=== PATIENT | female | born 1965 | race Two or more races ===

== ENCOUNTER 2022-05-31 02:44 | Emergency (ER) | payer OTHER ==
[~2022-05-31] VITALS: Ht 154.9 cm; Wt 60.3 kg
--- NOTE | 2022-05-31 03:00 | NUR ---
[id number]. FELL IN TOILET AFTER HER LEG CRAMPED AND GAVE IN. DENIED HT. PT IS AAOX4. ABLE TO MAKE NEEDS KNOWN. ATTACHED TO MONITOR. VITALS CHECKED.
--- NOTE | 2022-05-31 03:10 | NUR ---
FILOMENA ESCOBEDO: [phone]
--- NOTE | 2022-05-31 03:20 | NUR ---
CAME WITH IV CANNULA G18 ON RIGHT AC.
[2022-05-31] MEDS ORDERED: IV NS 0.9% 1,000 ML BAG IV ONE (06:00)
--- NOTE | 2022-05-31 06:02 | NUR ---
EKG DONE AT BEDSIDE
[2022-05-31 07:04] LABS: CARBON DIOXIDE 26 mmol/L (21-32); CHLORIDE 104 mmol/L (98-107); SODIUM SERUM 138 mmol/L (136-145)
[2022-05-31 07:06] LABS: CALCIUM, SERUM 9.2 mg/dL (8.5-10.1); CREATININE 0.7 mg/dL (0.6-1.3); GLUCOSE 94 mg/dL (74-106); UREA NITROGEN, BLOOD 9 mg/dL (7-18)
[2022-05-31 07:11] LABS: BASOPHILS % (AUTO) 0.6 % (0.0-2.0); EOSINOPHILS % (AUTO) 0.5 % (0.0-6.0); HEMATOCRIT 47 % (33-45); HEMOGLOBIN 15.1 g/dL (11.5-14.8); LYMPHOCYTES # (AUTO) 1.4 K/uL (0.8-4.8); LYMPHOCYTES % (AUTO) 19.1 % (20.0-44.0); MEAN CORPUSCULAR HGB CONC 32 g/dl (31.0-36.0); MEAN CORPUSCULAR VOLUME 96 fL (82-100); MONOCYTES # (AUTO) 0.6 K/uL (0.1-1.30); NEUTROPHILS # (AUTO) 5.1 K/uL (1.8-8.9); NEUTROPHILS % (AUTO) 70.8 % (43.0-81.0); PLATELET COUNT (AUTO) 247 K/uL (150-450); RED BLOOD CELL COUNT(AUTO) 4.94 MIL/uL (4.0-5.2); WHITE BLOOD COUNT (AUTO) 7.1 K/uL (4.3-11.0)
[2022-05-31 07:29] LABS: ALANINE AMINOTRANSFERASE 27 U/L (12-78); ALBUMIN 3.9 g/dL (3.4-5.0); ALKALINE PHOSPHATASE 75 U/L (46-116); ASPARTATE AMINOTRANSFERASE 34 U/L (15-37); BILIRUBIN,DIRECT 0.1 mg/dL (0.0-0.2); BILIRUBIN,TOTAL 0.4 mg/dL (0.2-1.0); TOTAL PROTEIN, SERUM 8.3 g/dL (6.4-8.2)
--- NOTE | 2022-05-31 08:00 | NUR ---
blood drawn at bedside for repeat troponin
[2022-05-31 09:35] VITALS: BP 108/64
--- NOTE | 2022-05-31 09:35 | NUR ---
IV removed. Catheter intact and site benign. Pressure and 4x4 applied to site. No bleeding noted.Patient discharged to home in stable condition. Written and verbal after care instructions given. Patient verbalizes understanding of instruction.
[2022-05-31 10:55] LABS: BAND % (MANUAL) 1 % (0.0-5.0); LYMPHOCYTES % (MANUAL) 15 % (16-48); MONOCYTES % (MANUAL) 5 % (0-11.0); NEUTROPHILS % (MANUAL) 79 (42-76)
== END 2022-05-31 09:36 | disposition home or self-care (01) ==
LOC: ER 02:48
DX: R55 Syncope and collapse (principal); I10 Essential (primary) hypertension; Z98.890 Other specified postprocedural states
CPT/HCPCS: 99285; 71045; 93005; 85025; 80048; 80076; 36415; 84484 ×2; 85007; J7030